=== PATIENT | male | born 1985 | race Caucasian/White ===

== ENCOUNTER 2018-04-22 12:03 | Outpatient (CLI) | payer BC ==
--- NOTE | 2018-04-22 13:29 | RAD ---
TWO VIEWS ABDOMEN: Date: 04-22-18 Provided Clinical History: Left lower quadrant pain. FINDINGS: The visualized lung bases appear clear. The abdominal bowel gas pattern is nonspecific. No radiograph ically apparent urinary tract calculi. The osseous structures demonstrate no acute abnormality. IMPRESSION: Nonspecific bowel gas pattern. POS: OFF
== END 2018-04-22 12:04 | disposition home or self-care (01) ==
LOC: BICRAD 12:03
PROVIDERS: ATTEND Family Medicine
DX: R10.9 Unspecified abdominal pain (principal)
CPT/HCPCS: 74019